=== PATIENT | male | born 1980 | race African-American/Black ===

== ENCOUNTER 2017-03-14 03:43 | Emergency (ER) | payer MEDICAID ==
[~2017-03-14] VITALS: Ht 188 cm; Wt 102.0 kg
[2017-03-14] MEDS ORDERED: NITROGLYCERIN 0.4MG TABLET SL SL PRN (04:15)
[2017-03-14] MEDS ORDERED: ASPIRIN 81MG TABLET PO STA (04:15)
[2017-03-14 04:40] LABS: BASOPHILS % 0.5 % (0.0-2.0); EOSINOPHILS % 0.4 % (0.0-5.0); HEMATOCRIT. 45.2 % (42.0-52.0); LYMPHOCYTES % 16.6 % (20.0-50.0); MEAN CORPUSCULAR HEMOGLOBIN 29.4 pg (28.0-32.0); MEAN CORPUSCULAR HGB CONC 33.2 g/dL (31.0-37.0); MEAN CORPUSCULAR VOLUME 88.5 fL (80.0-94.0); MEAN PLATELET VOLUME 7.4 fl (7.4-10.4); MONOCYTES % 6.1 % (2.0-8.0); NEUTROPHILS % 76.4 % (40.0-76.0); PLATELET 232 x1000/uL (130-400); RED BLOOD CELL COUNT 5.11 mill/uL (4.7-6.1); RED CELL DISTRIBUTION WIDTH 15.7 % (11.6-14.6); WHITE BLOOD COUNT 10.3 x1000/uL (4.5-11.0)
[2017-03-14 04:44] LABS: INR 1.1; PARTIAL THROMBOPLASTIN TIME 27.1 sec (24.0-34.0)
[2017-03-14 04:53] LABS: ALANINE AMINOTRANSFERASE 32 IU/L (13-61); ALBUMIN 4.3 g/dL (3.4-5.0); ANION GAP 18; CALCIUM 9.5 mg/dL (8.5-10.1); CARBON DIOXIDE 22 mEq/L (21-32); CHLORIDE 108 mEq/L (98-107); INDEX HEMOLYSI 1 (1-3); INDEX ICTERIC 1 (1-4); INDEX LIPEMIC 1 (1-3); LIPASE 104 IU/L (73-393); TROPONIN I < 0.02 ng/mL (0.00-0.04); UREA NITROGEN BLOOD 21 mg/dL (7-21); eGFR > 60 mL/min (>60)
[2017-03-14 06:02] VITALS: BP 152/84
== END 2017-03-14 06:03 | disposition home or self-care (01) ==
LOC: ER 03:45
DX: F16.10 Hallucinogen abuse, uncomplicated (principal); R07.9 Chest pain, unspecified; I10 Essential (primary) hypertension; I25.2 Old myocardial infarction; R56.9 Unspecified convulsions; F17.200 Nicotine dependence, unspecified, uncomplicated; Z86.73 Personal history of transient ischemic attack (TIA), and cerebral infarction without residual deficits
CPT/HCPCS: 36415; 71010; 80053; 83690; 84484; 85025; 85610; 85730; 93005; 99285

== ENCOUNTER 2017-10-02 15:42 | Emergency (ER) | payer MEDICAID ==
[~2017-10-02] VITALS: Ht 188 cm; Wt 107.0 kg
[2017-10-02] MEDS ORDERED: HYDROCODONE/APAP 7.5/325MG 1 TAB TABLET PO ONE (17:15)
[2017-10-02] MEDS ORDERED: KETOROLAC 60MG/2ML VIAL IM ONE (17:15)
[2017-10-02 18:30] VITALS: BP 144/86
== END 2017-10-02 19:51 | disposition left against medical advice (07) ==
LOC: ER 15:42
DX: S82.201A Unspecified fracture of shaft of right tibia, initial encounter for closed fracture (principal); V49.9XXA Car occupant (driver) (passenger) injured in unspecified traffic accident, initial encounter; Y93.9 Activity, unspecified; Y92.410 Unspecified street and highway as the place of occurrence of the external cause; I10 Essential (primary) hypertension; F17.200 Nicotine dependence, unspecified, uncomplicated; Z86.73 Personal history of transient ischemic attack (TIA), and cerebral infarction without residual deficits; I25.2 Old myocardial infarction
CPT/HCPCS: 73590; 73610; 96372; 99284; J1885; Z7610

== ENCOUNTER 2017-10-02 20:04 | Emergency (ER) | payer MEDICAID ==
[~2017-10-02] VITALS: Ht 188 cm; Wt 105.0 kg
[2017-10-02] MEDS ORDERED: ACETAMINOPHEN WITH CODEINE 300/30MG TABLET PO ONE (23:30)
[2017-10-03 01:40] VITALS: BP 135/85
== END 2017-10-03 01:50 | disposition home or self-care (01) ==
LOC: ER 20:04
DX: R07.9 Chest pain, unspecified (principal); Z48.02 Encounter for removal of sutures; F43.10 Post-traumatic stress disorder, unspecified; I10 Essential (primary) hypertension; F17.200 Nicotine dependence, unspecified, uncomplicated
CPT/HCPCS: 93005; 99283

== ENCOUNTER 2017-11-13 16:19 | Emergency (ER) | payer MEDICAID ==
[~2017-11-13] VITALS: Ht 177.8 cm; Wt 90.0 kg
[~2017-11-13 16:19] MED LIST: ALPR2TAB2 PO; MORP30TA54 PO; QUET400T PO
[2017-11-13] MEDS ORDERED: ONDANSETRON HCL 4MG/2ML VIAL IV STA (21:16)
[2017-11-13] MEDS ORDERED: ASPIRIN 81MG TABLET PO STA (21:16)
[2017-11-13] MEDS ORDERED: MORPHINE SULFATE 4 MG/ML CPJ (NOT FOR IM USE) IV STA (21:16)
[2017-11-13] MEDS ORDERED: NITROGLYCERIN OINT 1GM/INCH UDPKT TD ONE (21:30)
[2017-11-13 22:56] LABS: EOSINOPHILS % 0.3 % (0.0-5.0); HEMATOCRIT. 38.5 % (42.0-52.0); HEMOGLOBIN. 12.6 g/dL (14.0-18.0); LYMPHOCYTES % 27.6 % (20.0-50.0); MEAN CORPUSCULAR HEMOGLOBIN 28.5 pg (28.0-32.0); MEAN CORPUSCULAR VOLUME 87.1 fL (80.0-94.0); MEAN PLATELET VOLUME 7.2 fl (7.4-10.4); MONOCYTES % 5.9 % (2.0-8.0); NEUTROPHILS % 65.2 % (40.0-76.0); PLATELET 316 x1000/uL (130-400); RED BLOOD CELL COUNT 4.42 mill/uL (4.7-6.1); RED CELL DISTRIBUTION WIDTH 15.5 % (11.6-14.6)
[2017-11-13 23:13] LABS: D-DIMER 2.67 mg/L FEU (<0.50); INR 1.1; PARTIAL THROMBOPLASTIN TIME 29.5 sec (23.4-31.0); PROTHROMBIN TIME 11.4 sec (9.4-11.6)
[2017-11-13 23:24] LABS: CARBON DIOXIDE 30 mEq/L (21-32); CHLORIDE 100 mEq/L (98-107); TROPONIN I < 0.02 ng/mL (0.00-0.04)
[2017-11-14] MEDS ORDERED: HYDROCODONE/ACETAMINOPHEN 5/325MG TABLET PO ONE (01:30)
[2017-11-14] MEDS ORDERED: MORPHINE SULFATE 4 MG/ML CPJ (NOT FOR IM USE) IV ONE (04:15)
[2017-11-14 06:55] VITALS: BP 132/88
[2017-11-14] MEDS ORDERED: SODIUM CHLORIDE 0.9% 10ML VIAL ONE (07:58)
== END 2017-11-14 07:34 | disposition home or self-care (01) ==
LOC: ER 16:31
DX: R07.89 Other chest pain (principal); M79.604 Pain in right leg; G89.29 Other chronic pain; I10 Essential (primary) hypertension; F16.10 Hallucinogen abuse, uncomplicated; Z48.02 Encounter for removal of sutures; Z59.0 Homelessness; Z79.82 Long term (current) use of aspirin
CPT/HCPCS: 36415; 71010; 78582; 80053; 83880; 84484; 85025; 85379; 85610; 85730; 93005; 93971; 96374; 96376; 99285; A4216; A9540; A9558; J2270; J2405; Z7610

== ENCOUNTER 2017-11-15 15:46 | Emergency (ER) | payer MEDICAID ==
[~2017-11-15] VITALS: Ht 188 cm; Wt 100.0 kg
[2017-11-15 16:40] VITALS: BP 154/91
== END 2017-11-15 19:27 | disposition home or self-care (01) ==
LOC: ER 17:03
DX: Z48.02 Encounter for removal of sutures (principal); I10 Essential (primary) hypertension; F16.10 Hallucinogen abuse, uncomplicated; F11.10 Opioid abuse, uncomplicated; F17.210 Nicotine dependence, cigarettes, uncomplicated
CPT/HCPCS: 99281

== ENCOUNTER 2017-11-24 05:10 | Emergency (ER) | payer MEDICAID ==
[~2017-11-24] VITALS: Ht 180.3 cm; Wt 98.0 kg
[2017-11-24] MEDS ORDERED: ACETAMINOPHEN 325MG TABLET PO STA (06:18)
[2017-11-24] MEDS ORDERED: SODIUM CHLORIDE 0.9% 1,000 ML IV ONE (06:21)
[2017-11-24 07:12] LABS: BASOPHILS % 0.6 % (0.0-2.0); EOSINOPHILS % 0.2 % (0.0-5.0); HEMATOCRIT. 38.2 % (42.0-52.0); HEMOGLOBIN. 12.3 g/dL (14.0-18.0); LYMPHOCYTES % 29.4 % (20.0-50.0); MEAN CORPUSCULAR HEMOGLOBIN 28.2 pg (28.0-32.0); MEAN CORPUSCULAR VOLUME 87.5 fL (80.0-94.0); MEAN PLATELET VOLUME 7.1 fl (7.4-10.4); MONOCYTES % 5.5 % (2.0-8.0); NEUTROPHILS % 64.3 % (40.0-76.0); PLATELET 336 x1000/uL (130-400); RED BLOOD CELL COUNT 4.37 mill/uL (4.7-6.1); RED CELL DISTRIBUTION WIDTH 15.7 % (11.6-14.6)
[2017-11-24 07:17] LABS: INR 1.1; PROTHROMBIN TIME 11.3 sec (9.4-11.6)
[2017-11-24 07:22] LABS: CARBON DIOXIDE 31 mEq/L (21-32); CHLORIDE 101 mEq/L (98-107); ETHANOL BLOOD < 10 mg/dL
[2017-11-24 08:08] LABS: KETONES URINE NEGATIVE (NEGATIVE); LEUKOCYTE ESTERASE URINE NEGATIVE (NEGATIVE); NITRITE URINE NEGATIVE (NEGATIVE); OCCULT BLOOD URINE NEGATIVE (NEGATIVE); PROTEIN URINE NEGATIVE (NEGATIVE); SPECIFIC GRAVITY URINE 1.014 (1.005-1.030); UROBILINOGEN URINE 0.2 E.U./dL (0.2-1.0)
[2017-11-24 08:09] LABS: CLARITY URINE CLEAR (CLEAR); COLOR URINE YELLOW (YELLOW)
[2017-11-24 08:34] LABS: *AMPHETAMINES SCREEN URINE NEGATIVE (NEGATIVE); *BARBITURATES SCREEN URINE NEGATIVE (NEGATIVE); *BENZODIAZEPINES SCREEN URINE NEGATIVE (NEGATIVE); *COCAINE SCREEN URINE PRESUMTIVE POSITIVE (NEGATIVE); CANNABINOID URINE SCREEN PRESUMTIVE POSITIVE (NEGATIVE); METHADONE URINE SCREEN NEGATIVE (NEGATIVE); OPIATES URINE SCREEN NEGATIVE (NEGATIVE); PHENCYCLIDINE URINE SCREEN PRESUMTIVE POSITIVE (NEGATIVE)
[2017-11-24 09:22] VITALS: BP 144/86
== END 2017-11-24 09:40 | disposition home or self-care (01) ==
LOC: ER 05:10
DX: I62.00 Nontraumatic subdural hemorrhage, unspecified (principal); M79.602 Pain in left arm; M79.604 Pain in right leg; F12.10 Cannabis abuse, uncomplicated; R19.7 Diarrhea, unspecified; R42 Dizziness and giddiness; F19.10 Other psychoactive substance abuse, uncomplicated; F17.200 Nicotine dependence, unspecified, uncomplicated; I10 Essential (primary) hypertension; Z91.041 Radiographic dye allergy status
CPT/HCPCS: 36415; 70450; 71045; 80053; 80305; 81003; 85025; 85610; 96360; 99285; G0482; J7030